=== PATIENT | male | born 1960 | race Caucasian/White ===

== ENCOUNTER 2020-06-02 06:29 | Day surgery (SDC) | payer OTHER, SELFPAY ==
[2020-05-29 10:25] VITALS: BMI 25.8
--- NOTE | 2020-06-01 08:33 | HO.ANESPROP2 ---
Documented by User: Bre Gray 06/01/20 08:34 HPI - Anesthesia Eval Consult details Narrative: 60yo M for Colonoscopy [facility] Past Medical History Medical History Arthritis Elevated cholesterol History of 2019 novel coronavirus disease (COVID-19) HTN (hypertension) Surgical History Surgical History H/O colonoscopy Hx of nasal septoplasty Social History Social History Smoking Status: Never smoker Use of substances other than those prescribed or required for medical reasons: No Have you been hit, kicked, punched, or otherwise hurt by someone within the past year? If so, by whom?: No Advance Directives Information Provided: No Recently lost weight without trying: No Meds Allergies Allergy/AdvReac Type Severity Reaction Status Date / Time No Known Allergies Allergy Verified 05/29/20 10:29 Home Medications Medication Instructions Recorded Confirmed Type lisinopril 1 tab PO DAILY 05/29/20 05/29/20 History multivitamin 1 tab PO DAILY 05/29/20 05/29/20 History rosuvastatin 1 tab PO BEDTIME 05/29/20 05/29/20 History amlodipine 5 mg PO DAILY 06/02/20 06/02/20 History Exam Exam Date and Time: June 01, 2020 0833 Height,Weight and Vital Signs: Height 5 ft 6 in Weight 72.575 kg Assessment and Plan Assessment Anesthesia Assessment: Chart Reviewed Documented by User: Nina Rodriguez 06/02/20 07:40 [facility] Past Medical History Medical History Arthritis Elevated cholesterol History of 2019 novel coronavirus disease (COVID-19) HTN (hypertension) Surgical History Surgical History H/O colonoscopy Hx of nasal septoplasty Social History Social History Smoking Status: Never smoker Use of substances other than those prescribed or required for medical reasons: No Have you been hit, kicked, punched, or otherwise hurt by someone within the past year? If so, by whom?: No Advance Directives Information Provided: No Recently lost weight without trying: No Meds Allergies Allergy/AdvReac Type Severity Reaction Status Date / Time No Known Allergies Allergy Verified 05/29/20 10:29 Home Medications Medication Instructions Recorded Confirmed Type lisinopril 1 tab PO DAILY 05/29/20 05/29/20 History multivitamin 1 tab PO DAILY 05/29/20 05/29/20 History rosuvastatin 1 tab PO BEDTIME 05/29/20 05/29/20 History amlodipine 5 mg PO DAILY 06/02/20 06/02/20 History Exam Airway Mallampati Class: II TM Dist: >3cm Neck ROM: Full Loose/Missing/Broken Teeth: No Heart: RRR Lungs: CTA Assessment and Plan Assessment Anesthesia Assessment: Anesthesia Plan Discussed and Chart Reviewed Final Anesthetic Review NPO: Yes ASA Class: II Final Preanesthetic Review: Meds/Allgs Chart Reviewed, Consent Obtained/Reviewed and Anes Risks/Benef Reviewed Patient Risk: Low Procedure Risk: Low Anesthetic Plan Anesthetic Plan: MAC: Disposition: Standard PACU
[2020-06-02 06:45] VITALS: BP 152/69; PULSE 63; RESP 16; TEMP 36.4
[2020-06-02] MEDS: Lactated Ringers 1,000 ML 100 ML IVCONT (06:58)
--- NOTE | 2020-06-02 07:26 | MHC.SHP ---
Pre-Procedural Eval Section B Chief Complaint: SCREENING,HX OF POLYPS Details of Present Illness: screening see H&P no changes Relevant Family History (Specify if Yes): No Relevant Social History: None Present Medications: see Short Stay Collaborative assessment Medical History: Significant History (no changes) History of Previous Operations: No relevant previous surgery Allergies: Allergies Allergy/AdvReac Type Severity Reaction Status Date / Time No Known Allergies Allergy Verified 05/29/20 10:29 Review of Systems Sugical H&P ROS: Negative: Constitution, Cardiovascular, Respiratory, Neurological, Psychiatric, Hem-Onc, Allergic/Immunologic, Gastrointestinal, Genitourinary, Musculoskeletal, Integumentary, Endocrine and Eyes/Ears/Nose/Throat Exam Surgical H&P Exam: Normal: HEENT, Normal: Heart, Normal: Lungs, Normal: Extremities, Normal: Abdomen, Normal: Skin and Normal: Neurological Plan Patient has been examined and remains a candidate for the planned procedure
[2020-06-02 07:55] VITALS: BP 119/63; PULSE 65; RESP 16; TEMP 36.9; O2SAT 98
--- NOTE | 2020-06-02 07:55 | PM.OP ---
Brief Operative Note Date of procedure: 06/02/20 Pre-op diagnosis: screeining Post-op diagnosis: other (colon polyps) Procedure: colonoscopy Surgeon: Tigre Spring Anesthesia: MAC Estimated blood loss (mL): 0 Pathology: other (polyps 70 x2, 50cm x3) Condition: stable Disposition: PACU
[2020-06-02 08:10] VITALS: BP 151/75; PULSE 63; RESP 16; O2SAT 99
[2020-06-02 08:20] VITALS: BP 160/75; PULSE 60; RESP 16; TEMP 36.4; O2SAT 99
--- NOTE | 2020-06-02 08:43 | HO.POSTANES ---
Post Anesthesia Evaluation Post Anesthesia Evaluation Vital Signs: Vital Signs Temp Pulse Resp BP Pulse Ox 06/02/20 08:20 97.6 F 60 16 160/75 H 99 06/02/20 08:10 63 16 151/75 H 99 06/02/20 07:55 98.4 F 65 16 119/63 98 06/02/20 06:45 97.6 F 63 16 152/69 H Anesthesia: Monitored Mental Status: Awake Pain Control: Satisfactory Nausea/Vomiting: None Hydration: Adequate Anesthesia-Related Issues: No Anes. Related Issues
--- NOTE | 2020-06-02 08:50 | OP_ITS ---
SURGEON: Tigre Spring MD INDICATIONS: Colon cancer screening and prior history of adenomatous colon polyps. PREOPERATIVE DIAGNOSIS: POSTOPERATIVE DIAGNOSIS: PROCEDURE PERFORMED: ESTIMATED BLOOD LOSS: COMPLICATIONS: ANESTHESIA: ASSISTANTS: SPECIMENS: PROCEDURE: Colonoscopy to the terminal ileum with snare polypectomy. MEDICATIONS: Monitored anesthesia care. DESCRIPTION OF PROCEDURE: History and physical performed. The risks and benefits of the procedure were explained to the patient. Informed consent was obtained. The patient was placed in the left lateral decubitus position. A digital rectal exam was performed and was found to be normal. The Olympus pediatric video colonoscope was introduced into the rectum and advanced to the cecum without difficulty. The cecum was identified by transillumination, palpation, and identification of ileocecal valve. Examination was performed. The scope was removed. He tolerated the procedure well and was taken to recovery area in stable condition. FINDINGS: The terminal ileum was normal. The visualized colonic mucosa was normal. Multiple polyps were present. All were removed with a snare, and measured less than 10 mm. Two were located at 70 cm, three were located at 50 cm. No other polyps were identified. The quality of prep was good. Retroflexed examination showed small internal hemorrhoids. IMPRESSION: Colon polyps. RECOMMENDATION: Follow up the biopsy results. MD VEDA Camacho/POLO / [id number] MTDD
== END 2020-06-02 08:53 | disposition home or self-care (01) ==
PROVIDERS: Visit Provider Internal Medicine Gastroenterology
PROC: 0DJD8ZZ Inspection of Lower Intestinal Tract, Via Natural or Artificial Opening Endoscopic (ICD-10-PCS; CPT 45378; principal; 2020-06-02 07:30)
DX: Z12.11 Encounter for screening for malignant neoplasm of colon (principal); Z86.010 Personal history of colon polyps; D12.4 Benign neoplasm of descending colon; D12.5 Benign neoplasm of sigmoid colon; K64.8 Other hemorrhoids; I10 Essential (primary) hypertension; E78.5 Hyperlipidemia, unspecified; L40.9 Psoriasis, unspecified; Z86.19 Personal history of other infectious and parasitic diseases; Z79.899 Other long term (current) drug therapy
CPT/HCPCS: 45385; 88305

== ENCOUNTER 2024-02-10 08:40 | Day surgery (SDC) | payer MEDICARE, MEDICAID, SELFPAY ==
--- NOTE | 2024-02-09 10:20 | HO.ANESPROP2 ---
Documented by User: Bre Gray NP 02/09/24 10:21 HPI - Anesthesia Eval Consult details Narrative: 63yo M for Colonoscopy [facility] Past Medical History Medical History BPH (benign prostatic hyperplasia) Stroke History of 2019 novel coronavirus disease (COVID-19) Arthritis Elevated cholesterol HTN (hypertension) Surgical History Surgical History H/O colonoscopy Hx of nasal septoplasty Social History Social History Patient Tobacco Use Status: Never used Tobacco Use of substances other than those prescribed or required for medical reasons: No Are you DNR?: No Advance Directives: No Advance Directives Information Provided: Yes Meds Allergies Allergy/AdvReac Type Severity Reaction Status Date / Time No Known Allergies Allergy Verified 05/29/20 10:29 Home Medications ?Medication ?Instructions ?Recorded ?Confirmed ?Last Taken ?Type aspirin 81 mg capsule,delayed 81 mg PO DAILY 02/10/24 02/10/24 02/03/24 History release atorvastatin 80 mg tablet 80 mg PO DAILY 02/10/24 02/10/24 Unknown History calcipotriene 0.005 % topical cream appl topical 02/10/24 02/10/24 Unknown History metoprolol tartrate 25 mg tablet 50 mg PO BID 02/10/24 02/10/24 Unknown History omega-3 fatty acids 500 mg PO BID 02/10/24 02/10/24 Unknown History tamsulosin 0.4 mg capsule 0.4 mg PO DAILY 02/10/24 02/10/24 Unknown History Assessment and Plan Assessment Anesthesia Assessment: Chart Reviewed Documented by User: Evette Elizalde MD 02/10/24 10:27 [facility] Past Medical History Medical History BPH (benign prostatic hyperplasia) Stroke History of 2019 novel coronavirus disease (COVID-19) Arthritis Elevated cholesterol HTN (hypertension) Family History Family history of problems with anesthesia: No Surgical History Surgical History H/O colonoscopy Hx of nasal septoplasty History of Problems with Anesthesia: No Social History Social History Patient Tobacco Use Status: Never used Tobacco Use of substances other than those prescribed or required for medical reasons: No Are you DNR?: No Advance Directives: No Advance Directives Information Provided: Yes Meds Allergies Allergy/AdvReac Type Severity Reaction Status Date / Time No Known Allergies Allergy Verified 05/29/20 10:29 Home Medications ?Medication ?Instructions ?Recorded ?Confirmed ?Last Taken ?Type aspirin 81 mg capsule,delayed 81 mg PO DAILY 02/10/24 02/10/24 02/03/24 History release atorvastatin 80 mg tablet 80 mg PO DAILY 02/10/24 02/10/24 Unknown History calcipotriene 0.005 % topical cream appl topical 02/10/24 02/10/24 Unknown History metoprolol tartrate 25 mg tablet 50 mg PO BID 02/10/24 02/10/24 Unknown History omega-3 fatty acids 500 mg PO BID 02/10/24 02/10/24 Unknown History tamsulosin 0.4 mg capsule 0.4 mg PO DAILY 02/10/24 02/10/24 Unknown History Exam Airway Mallampati Class: II TM Dist: >3cm Neck ROM: Full Heart: rrr Lungs: cta Assessment and Plan Assessment Anesthesia Assessment: Anesthesia Plan Discussed Final Anesthetic Review Family History of Problems with Anesthesia: No History of Problems with Anesthesia: No NPO: Yes ASA Class: III Final Preanesthetic Review: No Changes in Pt Med Stat, Meds/Allgs Chart Reviewed, Consent Obtained/Reviewed and Anes Risks/Benef Reviewed Patient Risk: Intermediate Procedure Risk: Low Anesthetic Plan Anesthetic Plan: MAC: Disposition: Standard PACU
[2024-02-10 09:23] VITALS: BMI 23.4
[2024-02-10 09:32] VITALS: BP 187/80; PULSE 62; RESP 16; TEMP 36.8; O2SAT 99
[2024-02-10] MEDS: Lactated Ringers 1,000 ML 100 ML IVCONT (09:40)
--- NOTE | 2024-02-10 10:33 | MHC.SHP ---
Pre-Procedural Eval Section A - 24 Hr Update-Section A only Date of Service: 02/10/24 The patient is an INPATIENT: No Changes since office visit: No Cold of Flu in the past 2 weeks, No New Medical Problems, No Changes in Medication and No Patient answered all questions The patient has been examined within 24 hours of the surgical procedure. The History & Physical has been completed within 30 days and I have reviewed it.: Yes Section B - Complete if H&P > 30 days Chief Complaint: Encounter for screening for malignant neoplasm of Allergies: Allergies Allergy/AdvReac Type Severity Reaction Status Date / Time No Known Allergies Allergy Verified 05/29/20 10:29 Plan I have reviewed the history and physical and performed a pertinent physical examination on my patient. No changes have occurred unless specified. Time Spent With Patient Time: Total time managing care of this patient today ____ minutes.
[2024-02-10 11:10] VITALS: BP 134/84; PULSE 84; RESP 16; TEMP 36.1; O2SAT 100
--- NOTE | 2024-02-10 11:19 | PC.NURSE ---
dr stroud at bedside speaking to pt concerning results pt verbalized understanding
[2024-02-10 11:25] VITALS: BP 138/79; PULSE 84; RESP 16; TEMP 36.1; O2SAT 97
--- NOTE | 2024-02-10 12:48 | OP_ITS ---
DATE OF SERVICE: 02/10/2024 SURGEON: Tigre Spring MD INDICATIONS: Colon cancer screening. PREOPERATIVE DIAGNOSIS: POSTOPERATIVE DIAGNOSIS: PROCEDURE PERFORMED: Colonoscopy to the terminal ileum with biopsy. ESTIMATED BLOOD LOSS: COMPLICATIONS: ANESTHESIA: Monitored anesthesia care. ASSISTANTS: SPECIMENS: DESCRIPTION OF PROCEDURE: A history and physical was performed. The risks and benefits of the procedure were explained to the patient and informed consent was obtained. The patient was placed in the left lateral decubitus position. A digital rectal exam was performed and was found to be normal. The Olympus pediatric video colonoscope was introduced into the rectum and advanced to the cecum. The cecum was identified by transillumination, palpation, and identification of ileocecal valve. Examination was performed and the scope was removed. He tolerated the procedure well and was returned to recovery area in stable condition. FINDINGS: The terminal ileum was normal. The visualized colonic mucosa was normal. There was a moderate amount of liquid and semi-formed stool coating the mucosa limiting the sensitivity examination for detection of small polyps. This was washed and suctioned, but the exam was limited. In the cecum, was a slightly nodular area in the vicinity of a nonbleeding AVM and there was a 2nd AVM, both measured less than 10 mm. No therapy was performed. Biopsies were obtained from the nodular mucosa. There was a small less than 5 mm polyp at 55 cm. This was removed with the biopsy forceps. Retroflexed examination showed small internal hemorrhoids. IMPRESSION: Colon polyps. RECOMMENDATIONS: 1. Follow up the biopsy results. 2. Due to limitations of this examination, recommend short-term followup with a 2-day prep in the next 12 to 24 months. MD VEDA Camacho/MARLYL / [id number]
== END 2024-02-10 12:06 | disposition home or self-care (01) ==
PROVIDERS: PCP Internal Medicine; Visit Provider Internal Medicine Gastroenterology
PROC: 0DJD8ZZ Inspection of Lower Intestinal Tract, Via Natural or Artificial Opening Endoscopic (ICD-10-PCS; CPT 45378; principal; 2024-02-10 10:40)
DX: Z12.11 Encounter for screening for malignant neoplasm of colon (principal); D12.5 Benign neoplasm of sigmoid colon; K55.20 Angiodysplasia of colon without hemorrhage; K64.8 Other hemorrhoids; E78.00 Pure hypercholesterolemia, unspecified; I10 Essential (primary) hypertension; Z86.73 Personal history of transient ischemic attack (TIA), and cerebral infarction without residual deficits; Z79.02 Long term (current) use of antithrombotics/antiplatelets; Z79.82 Long term (current) use of aspirin; Z79.899 Other long term (current) drug therapy
CPT/HCPCS: 45380; 88305; J2704